=== PATIENT | male | born 1950 | race Caucasian/White ===

== ENCOUNTER 2017-08-07 17:35 | Inpatient (IN) | payer OTHER ==
[~2017-08-07] VITALS: Ht 177.8 cm; Wt 89.8 kg
[~2017-08-07 17:35] MED LIST: FINASTERIDE5 MG; HYDROCHLOROTHIA25 MG; MESTINON60 M1; OMEPRAZOLE20 MG; ORASEP SPRAY30 ML MM
[2017-08-07] MEDS ORDERED: PANTOPRAZOLE SO40 MG (18:40)
== END 2017-08-11 08:17 | disposition home or self-care (01) | DRG 379 ==
LOC: ER 17:35 → MEDJ 08-08 10:06
DX: K92.2 Gastrointestinal hemorrhage, unspecified (principal); G70.00 Myasthenia gravis without (acute) exacerbation; E87.6 Hypokalemia; K52.89 Other specified noninfective gastroenteritis and colitis

== ENCOUNTER 2019-05-27 07:14 | Outpatient (CLI) | payer OTHER ==
[~2019-05-27 07:14] MED LIST changes: +PANTOPRAZOLE SO40 MG
== END 2019-05-27 07:29 | disposition home or self-care (01) ==
LOC: SONOGRAMA 07:14
DX: R97.20 Elevated prostate specific antigen [PSA] (principal)

== ENCOUNTER 2024-10-02 21:51 | Emergency (ER) | payer OTHER ==
[~2024-10-02] VITALS: Ht 170.2 cm; Wt 81.6 kg
[2024-10-02] MEDS ORDERED: TAMS0.4C (22:07)
[2024-10-02] MEDS ORDERED: KETOROLAC TROMETHAMINE 30 MG VIAL IV ONE (22:30)
[2024-10-02] MEDS ORDERED: TAMSULOSIN HCL 0.4 MG CAP PO ONE (22:30)
[2024-10-02 23:44] LABS: HEMATOCRIT 45.9 % (39.0-48.0); HEMOGLOBIN 15.2 g/dL (13-16.00); MEAN CELL VOLUME 96.7 fL (80.0-100.00); MEAN CORPUSCULAR HEMOGLOBIN 32.1 pg (27.00-32.0); MEAN CORPUSCULAR HGB CONC 33.2 g/dl (32.0-36.0); PLATELET COUNT 206 K/uL (150-450); RED BLOOD COUNT 4.75 M/uL (4.00-6.00); RED CELL DISTRIBUTION WIDTH 13.4 % (11.5-14.5)
[2024-10-02 23:57] LABS: URINE APPEARANCE Clear; URINE BILIRRUBIN Negative (NEGATIVE); URINE BLOOD Small; URINE COLOR Yellow; URINE GLUCOSE Negative (NEGATIVE); URINE KETONE Negative (NEGATIVE); URINE LEUKOCYTE Negative; URINE NITRATE Negative; URINE PROTEIN Negative (NEGATIVE); URINE UROBILINOGEN 0.2 E.U./dl
[2024-10-03 00:01] LABS: URINE BACTERIA 4.8 uL (0.0-1933); URINE WBC 6.1 uL (0.0-23.2)
== END 2024-10-03 01:01 | disposition home or self-care (01) ==
LOC: ER 21:53
PROVIDERS: Emergency Medicine
DX: N40.1 Benign prostatic hyperplasia with lower urinary tract symptoms (principal); R33.8 Other retention of urine; Z88.8 Allergy status to other drugs, medicaments and biological substances; G70.00 Myasthenia gravis without (acute) exacerbation

== ENCOUNTER 2024-11-04 05:25 | Inpatient (IN) | payer OTHER ==
[2024-10-28 12:29] LABS: URINE BILIRRUBIN NEGATIVE (NEGATIVE); URINE BLOOD LARGE; URINE GLUCOSE NEGATIVE (NEGATIVE); URINE KETONE TRACE (NEGATIVE); URINE LEUKOCYTE MODERATE; URINE NITRATE POSITIVE; URINE UROBILINOGEN 0.2 E.U./dl
[2024-10-28 12:30] LABS: URINE BACTERIA 4968.2 uL (0.0-1933); URINE CAST 1.76 uL (0.0-1.40); URINE EPITHELIAL CELLS 7.1 uL (0.0-38.8); URINE RBC 4878.3 uL (0.0-20.8); URINE WBC 5463.6 uL (0.0-23.2)
[2024-10-28 12:31] LABS: HEMATOCRIT 41.3 % (39.0-48.0); HEMOGLOBIN 14.4 g/dL (13-16.00); MEAN CELL VOLUME 95.4 fL (80.0-100.00); MEAN CORPUSCULAR HEMOGLOBIN 33.4 pg (27.00-32.0); PLATELET COUNT 232 K/uL (150-450); RED BLOOD COUNT 4.33 M/uL (4.00-6.00)
[2024-10-28 12:32] LABS: URINE COLOR YELLOW; URINE PROTEIN 100 (NEGATIVE)
[2024-10-28 12:35] LABS: URINE APPEARANCE CLOUDY
[2024-10-28 13:01] LABS: CALCIUM 9.2 mg/dL (8.5-10.1); CREATININE SERUM 0.94 mg/dL (0.70-1.30); GFR 78.23; POTASSIUM 4.05 mEq/L (3.5-5.1)
[2024-10-28 13:03] LABS: PARTIAL THROMBOPLASTIN TIME 25.6 SECONDS (22.0-34.0); PROTHROMBIN TIME 10.9 SECONDS (9.0-11.5)
[~2024-11-04] VITALS: Ht 175.3 cm; Wt 90.7 kg
[~2024-11-04 05:25] MED LIST changes: +TAMS0.4C
[2024-11-04] MEDS ORDERED: GENTAMICIN SULFATE 40 MG/ML VIAL ONE (07:30)
[2024-11-04] MEDS ORDERED: CHLORHEXIDINE GLUCONATE 120 ML BOTTLE TOP ONE (07:34)
[2024-11-04] MEDS ORDERED: ONDANSETRON HCL 2 MG/ML VIAL IV PRN (10:30)
[2024-11-04] MEDS ORDERED: MORPHINE SULFATE 4 MG/ML VIAL IV ONE ×2 (10:55→11:40)
[2024-11-04 14:31] VITALS: BP 158/79; O2SAT 95
[2024-11-04 14:41] VITALS: BP 157/71; O2SAT 97
[2024-11-04 16:00] VITALS: BP 144/79; O2SAT 95
[2024-11-04] MEDS ORDERED: OxyCODONE HCL/APAP UD (PERCOCET) PO PRN (22:00)
[2024-11-05 01:33] VITALS: BP 127/68; O2SAT 97
[2024-11-05 08:05] LABS: CALCIUM 8.8 mg/dL (8.5-10.1); CREATININE SERUM 0.9 mg/dL (0.70-1.30); GFR 82.26; POTASSIUM 3.89 mEq/L (3.5-5.1)
[2024-11-05 08:12] LABS: HEMATOCRIT 42.5 % (39.0-48.0); MEAN CELL VOLUME 95.3 fL (80.0-100.00); MEAN CORPUSCULAR HEMOGLOBIN 33.7 pg (27.00-32.0); MEAN CORPUSCULAR HGB CONC 35.3 g/dl (32.0-36.0); PLATELET COUNT 210 K/uL (150-450); RED BLOOD COUNT 4.46 M/uL (4.00-6.00); RED CELL DISTRIBUTION WIDTH 14.5 % (11.5-14.5)
[2024-11-05] MEDS ORDERED: CEFTRIAXONE SODIUM 2,000 MG VIAL IV SCH (09:00)
[2024-11-05] MEDS ORDERED: TAMSULOSIN HCL 0.4 MG CAP PO SCH (09:00)
[2024-11-05 09:25] VITALS: BP 149/80; O2SAT 97
== END 2024-11-05 12:06 | disposition home or self-care (01) | DRG 714 ==
LOC: CIR.AMB 05:25 → EDSTATUS 10:15 → SURH 10:15 → O/R 10:40 → SURH 11:20
PROVIDERS: ADMIT Urology; ATTEND Urology
PROC: 0TCB8ZZ Extirpation of Matter from Bladder, Via Natural or Artificial Opening Endoscopic (ICD-10-PCS; 2024-11-04)
PROC: 0VT08ZZ Resection of Prostate, Via Natural or Artificial Opening Endoscopic (ICD-10-PCS; principal; 2024-11-04 07:00)
DX: N40.1 Benign prostatic hyperplasia with lower urinary tract symptoms (principal); R33.9 Retention of urine, unspecified; N21.0 Calculus in bladder